=== PATIENT | female | born 1980 | race Caucasian/White ===

== ENCOUNTER 2018-10-11 05:06 | Inpatient (IN) ==
[2018-10-11] MEDS ORDERED: Chlorhexidine Gluconate 2% 1 Pack (2 Cloths) TOPICAL ONE (06:13)
[2018-10-11] MEDS ORDERED: Metoprolol Tartrate 25 MG Tablet PO ONE (06:13)
[2018-10-11] MEDS ORDERED: Vancomycin Inj 1,250 MG in Sodium Chlor 0.9% Inj 250 ML IV.SIG PRN (06:15)
[2018-10-11] MEDS ORDERED: Sodium Chlor 0.9% Inj 250 ML ONE (06:42)
[2018-10-11] MEDS ORDERED: Sugammadex Inj 200 MG/2 ML Vial IV.PUSH ONE (06:43)
[2018-10-11] MEDS ORDERED: Sodium Chlor 0.9% Inj 500 ML IV.SIG SCH (07:00)
[2018-10-11] MEDS ORDERED: Bupivacaine/Epinephrine Inj 0.25% 50 ML Vial ONE (07:06)
[2018-10-11] MEDS ORDERED: Post-op Orders (for Pharmacy) OTHER STA (09:38)
[2018-10-11] MEDS ORDERED: Naloxone Inj 0.4 MG/ML Vial IV.PUSH PRN (09:41)
[2018-10-11] MEDS ORDERED: *Meperidine Inj 25 MG/ML Vial PERIprocedural Use ONLY ONE (09:49)
[2018-10-11] MEDS ORDERED: fentaNYL Citrate Inj 100 MCG/2 ML Ampul ONE (09:49)
[2018-10-11] MEDS ORDERED: *morphine SULFATE 10 MG/ML PERIprocedure ONLY ONE ×2 (09:55→10:21)
[2018-10-11] MEDS: KCL 20 mEq/D5W/NaCl 0.45% Inj 1,000 ML IV.CONT SCH ×2 (10:26→20:37)
[2018-10-11] MEDS: Morphine Inj 30 MG/30 ML PCA.VIAL PCA PRN ×2 (10:29→23:31)
[2018-10-11] MEDS ORDERED: *HYDROmorphone PF Inj 1 MG/ML Ampul PERIprocedural Use ONLY ONE (11:30)
[2018-10-11] MEDS: Enoxaparin Inj 40 MG/0.4 ML Syringe SQ SCH (15:35)
[2018-10-11] MEDS: Ketorolac Inj 30 MG/ML (IVP) Vial IV.PUSH PRN (15:51)
[2018-10-11] MEDS: Venlafaxine XR 75 MG Capsule PO SCH (15:57)
[2018-10-11] MEDS: Acetaminophen-HYDROcodone 325/7.5 Liq 15 ML UDC PO PRN (20:33)
[2018-10-11] MEDS: ARIPiprazole 2 MG Tablet PO SCH (20:33)
[2018-10-11] MEDS: Vancomycin Inj 1,000 MG in Sodium Chlor 0.9% Inj 250 ML IV.SIG SCH (20:34)
[2018-10-11] MEDS: lamoTRIgine 100 MG Tablet PO SCH (20:35)
[2018-10-11] MEDS ORDERED: lamoTRIgine 100 MG Tablet PO SCH (21:00)
--- NOTE | 2018-10-11 23:37 | MP ---
cc: Jesus Zaman MD DATE OF OPERATION: 10/11/2018 PREOPERATIVE DIAGNOSIS: Morbid obesity with a body mass index of 43 complicated by hypercholesterolemia and obstructive sleep apnea. POSTOPERATIVE DIAGNOSIS: Morbid obesity with a body mass index of 43 complicated by hypercholesterolemia and obstructive sleep apnea. PROCEDURE PERFORMED: Laparoscopic Goldy-en-Y gastric bypass, 100 cm Goldy limb, antegastric, antecolic. SURGEON: Jesus Zaman MD ROASTERMAN: Allan Delgado MD. Dr. Delgado's assistance was necessary for the procedure due to the complexity of the procedure. Dr. Delgado assisted with manipulation and exposure during the procedure. The home care assistant provided by [employer] was utilized managing the camera. ANESTHESIA: General endotracheal anesthesia. ESTIMATED BLOOD LOSS: Scant. FINDINGS: Fatty liver. SPECIMENS: None. COMPLICATIONS: None. OPERATION IN DETAIL: The patient was brought to the operating room and placed on the operating table in supine position, bilateral sequential inflation device placed on lower extremities, general anesthesia instituted, antibiotics initiated. The abdomen was prepped and draped sterilely. A point 18-cm distal to the xiphoid in the midline anesthetized with 0.25% Marcaine with epinephrine. The skin incision was made, a 5-mm OptiView port placed under direct vision and pneumoperitoneum was created. Under direct vision a 5-mm left upper quadrant, 12-mm left upper quadrant, 12-mm right upper quadrant and 5-mm right upper quadrant ports were placed. Prior to placement of all ports, the skin and peritoneum were anesthetized with 0.25% Marcaine with epinephrine. The patient's omentum was lifted into the upper abdomen. It was split down the middle to create a path for the Goldy limb. The ligament of Treitz was identified, a point 40 cm distal identified. The small bowel was divided in this region using an [place] Flex stapler vascular load reinforced with SeamGuard. The distal segment was brought up for a distance of 100 cm, enterotomy created in this region, enterotomy in the biliopancreatic limb and a [id number] stapled jejunojejunostomy created in the usual manner. The mesenteric defect at the jejunojejunostomy was closed with 2-0 Surgidac suture in a running manner. The patient was placed in reverse Trendelenburg position with the left side up. The Mireya-Flex retractor was placed. The left lobe of the liver was retracted. The angle of His was taken down bluntly, a point 5 cm distal to the GE junction along the lesser curve identified, the lesser sac entered using blunt dissection. The stomach was partitioned horizontally using an [place]-Flex stapler blue load, an additional firing taken directed towards the angle of His to completely divide the stomach. A gastrotomy created in the new stomach, enterotomy in the Goldy limb and gastrojejunostomy created, stomal opening of 2 cm. An 18-Uzbek orogastric tube was placed across the anastomosis, the defect then closed in two layers of running 2-0 Vicryl. Prior to placement of the second layer, methylene blue instilled through the orogastric tube. There was no evidence of extravasation. Evicel was then placed over the gastrojejunostomy, jejunojejunostomy and all staple lines. The operative field inspected and hemostasis was present. The CO2 was released, all ports were removed. All skin incisions were closed with 4-0 Monocryl. The abdominal wall was cleaned and a sterile dressing placed. The patient was awakened and taken to the recovery room. MD ALLEN Jimenez/dinah , 11:04 PM , 11:10 PM
[2018-10-12] MEDS: KCL 20 mEq/D5W/NaCl 0.45% Inj 1,000 ML IV.CONT SCH ×3 (02:07→17:12)
[2018-10-12] MEDS: Acetaminophen-HYDROcodone 325/7.5 Liq 15 ML UDC PO PRN ×3 (04:51→19:39)
[2018-10-12] MEDS: Levothyroxine 50 MCG Tablet PO SCH ×2 (04:52→07:44)
[2018-10-12] MEDS: Morphine Inj 30 MG/30 ML PCA.VIAL PCA PRN (06:55)
[2018-10-12 07:02] LABS: Baso % (Auto) 0.1 % (0.0-2.0); Eos % (Auto) 0.1 % (0.0-4.0); Hematocrit 36.5 % (35.0-46.0); Lymph # (Auto) 1.2 th/mm3 (1.0-4.8); Lymph % (Auto) 6.4 % (9.0-44.0); Mean Corpuscular HGB Conc 32.9 % (32.0-36.0); Mean Corpuscular Hemoglobin 27.8 pg (27.0-34.0); Mean Corpuscular Volume 84.6 fL (80.0-100.0); Mean Platelet Volume 8.6 fL (7.0-11.0); Mono % (Auto) 5.3 % (0.0-8.0); Neut # (Auto) 16.5 th/mm3 (1.8-7.7); Neut % (Auto) 88.1 % (16.0-70.0); Platelet Count 257 th/mm3 (150-450); Red Blood Count 4.31 mil/mm3 (4.00-5.30); Red Cell Distribution Width 13.7 % (11.6-17.2); White Blood Count 18.7 th/mm3 (4.0-11.0)
[2018-10-12 07:24] LABS: Carbon Dioxide 26.2 meq/L (21.0-32.0); Magnesium 2.6 mg/dL (1.5-2.5); Potassium 4.2 meq/L (3.5-5.1)
[2018-10-12] MEDS: lamoTRIgine 100 MG Tablet PO SCH ×2 (08:44→19:44)
[2018-10-12] MEDS: Venlafaxine XR 75 MG Capsule PO SCH (08:44)
[2018-10-12] MEDS: Vancomycin Inj 1,000 MG in Sodium Chlor 0.9% Inj 250 ML IV.SIG SCH (08:46)
[2018-10-12] MEDS ORDERED: Ketorolac Inj 30 MG/ML (IVP) Vial IV.PUSH PRN (09:58)
--- NOTE | 2018-10-12 10:33 | P.PNGS ---
Subjective Patient reports: feels better, still having pain, tolerating liquids well ( Denies SOB, palpitations or chest pain. Walking in the halls without difficulty.), no flatus, nausea Physical Exam Vital signs: Vital Signs 10/11/18 10:45 10/11/18 11:45 10/11/18 12:00 Temperature 97.8 F Pulse Rate 101 H 105 H 110 H Respiratory Rate 18 18 17 Blood Pressure 150/70 H 150/67 H 132/83 Pulse Oximetry 95 95 92 L 10/11/18 12:25 10/11/18 13:44 10/11/18 16:00 Temperature 97.6 F 97.1 F L Pulse Rate 111 H 91 H Respiratory Rate 18 18 18 Blood Pressure 153/67 H 121/66 Pulse Oximetry 95 98 10/11/18 16:21 10/11/18 19:55 10/11/18 20:00 Temperature 97.1 F L Pulse Rate 94 H Respiratory Rate 18 20 18 Blood Pressure 120/77 Pulse Oximetry 94 L 10/11/18 23:56 10/12/18 04:00 10/12/18 07:46 Temperature 98.2 F 97.9 F Pulse Rate 89 93 H Respiratory Rate 18 18 20 Blood Pressure 120/59 L 122/69 Pulse Oximetry 93 L 93 L 10/12/18 08:00 Temperature 97.9 F Pulse Rate 92 H Respiratory Rate 20 Blood Pressure 112/98 H Pulse Oximetry 90 L Intake & Output 10/11/18 10/12/18 10/12/18 18:59 06:59 18:59 Intake Total 1432.5 / 1432.5 1750 / 1750 350 / 350 Output Total 1082 / 1082 2100 / 2100 Balance 350.5 / 350.5 -350 / -350 350 / 350 Weight 129.2 kg 129.4 kg Intake: IV 1312.5 / 1312.5 1350 / 1350 350 / 350 D5W/1/2NS + KCL 20 mEq Inj 1, 750 / 750 1000 / 1000 000 ML @ 125 mls/hr IV.CONT . Q8H [facility] Rx#:[id number] Ofirmev Inj 1,000 mg In 100 ml 100 / 100 @ 400 mls/hr IV.SIG [facility]N Rx#:[id number] Vancomycin Inj 1,000 MG In NS 250 / 250 250 / 250 Inj 250 ML @ 250 mls/hr IV.SIG Q12H [facility] Rx#:[id number] Vancomycin Inj 1,250 MG In NS 262.5 / 262.5 Inj 250 ML @ 250 mls/hr IV.SIG [facility] Rx#:[id number] Flagyl 500 MG Inj 100 ML @ 100 200 / 200 100 / 100 100 / 100 mls/hr IV.SIG Q8H [facility] Rx#: [id number] Oral 120 / 120 400 / 400 Output: Urine 1075 / 1075 2100 / 2100 Estimated Blood Loss 7 / 7 Other: # Bowel Movements 0 Narrative: GENERAL: SKIN: Warm and dry. HEAD: Normocephalic. EYES: No scleral icterus. No injection or drainage. NECK: Supple, trachea midline. No JVD or lymphadenopathy. CARDIOVASCULAR: Regular rate and rhythm without murmurs, gallops, or rubs. RESPIRATORY: Breath sounds equal bilaterally. No accessory muscle use. GASTROINTESTINAL: Abdomen soft, normal post operative tenderness, laparoscopic sites WNL, mildly distended. MUSCULOSKELETAL: No cyanosis, or edema. BACK: Nontender without obvious deformity. No CVA tenderness. Results - Labs 10/12/18 06:04 10/12/18 06:04 Laboratory Results - last 24 hr 10/12/18 10/12/18 06:04 06:04 WBC 18.7 H RBC 4.31 Hgb 12.0 Hct 36.5 MCV 84.6 MCH 27.8 MCHC 32.9 RDW 13.7 Plt Count 257 MPV 8.6 Neut % (Auto) 88.1 H Lymph % (Auto) 6.4 L [place] % (Auto) 5.3 Eos % (Auto) 0.1 Baso % (Auto) 0.1 Neut # (Auto) 16.5 H Lymph # (Auto) 1.2 [place] # (Auto) 1.0 H Eos # (Auto) 0.0 Baso # (Auto) 0.0 WBC Differential . Differential Comment Auto diff final Sodium 142 Potassium 4.2 Chloride 108 H Carbon Dioxide 26.2 Anion Gap 8 BUN 8 Creatinine 0.80 Estimated GFR 81 L Random Glucose 123 H Calcium 8.0 L Magnesium 2.6 H Assessment and Plan - Plan POD #1 status post laparoscopic RNY Tolerating clear liquids 60 ml every 30 minutes Ambulate ad ericka, add scopolamine for nausea. Alternate toradol and hycet for pain control. Code Status: full Discussed Condition With: patient
[2018-10-12] MEDS: Enoxaparin Inj 40 MG/0.4 ML Syringe SQ SCH (13:38)
[2018-10-12] MEDS: Ketorolac Inj 30 MG/ML (IVP) Vial IV.PUSH PRN ×2 (13:39→19:44)
[2018-10-12] MEDS: diphenhydrAMINE HCl 12.5 MG/5 ML Elixir UDC PO PRN ×2 (17:11→22:42)
[2018-10-12] MEDS: ARIPiprazole 2 MG Tablet PO SCH (19:44)
[2018-10-12 23:50] VITALS: BP 114/56; PULSE 95; RESP 19; TEMP 97.9; O2SAT 93
[2018-10-13] MEDS: ARIPiprazole 2 MG Tablet PO SCH (00:18)
[2018-10-13] MEDS: lamoTRIgine 100 MG Tablet PO SCH ×2 (00:18→08:53)
[2018-10-13] MEDS: Acetaminophen-HYDROcodone 325/7.5 Liq 15 ML UDC PO PRN ×2 (01:12→06:17)
[2018-10-13] MEDS: KCL 20 mEq/D5W/NaCl 0.45% Inj 1,000 ML IV.CONT SCH ×2 (01:14→10:40)
[2018-10-13] MEDS: Ketorolac Inj 30 MG/ML (IVP) Vial IV.PUSH PRN ×2 (01:14→06:17)
[2018-10-13 06:15] LABS: Baso # (Auto) 0.1 th/mm3 (0.0-0.2); Baso % (Auto) 0.9 % (0.0-2.0); Eos # (Auto) 0.2 th/mm3 (0.0-0.4); Eos % (Auto) 2.1 % (0.0-4.0); Hematocrit 32.3 % (35.0-46.0); Hemoglobin 10.7 gm/dL (11.6-15.3); Lymph # (Auto) 1.7 th/mm3 (1.0-4.8); Lymph % (Auto) 16.8 % (9.0-44.0); Mean Corpuscular HGB Conc 33.2 % (32.0-36.0); Mean Corpuscular Hemoglobin 28.4 pg (27.0-34.0); Mean Corpuscular Volume 85.3 fL (80.0-100.0); Mean Platelet Volume 8.4 fL (7.0-11.0); Mono # (Auto) 0.8 th/mm3 (0.0-0.9); Mono % (Auto) 8.1 % (0.0-8.0); Neut # (Auto) 7.2 th/mm3 (1.8-7.7); Neut % (Auto) 72.1 % (16.0-70.0); Platelet Count 210 th/mm3 (150-450); Red Blood Count 3.78 mil/mm3 (4.00-5.30); Red Cell Distribution Width 13.7 % (11.6-17.2)
[2018-10-13] MEDS: Levothyroxine 50 MCG Tablet PO SCH (06:16)
[2018-10-13] MEDS: Venlafaxine XR 75 MG Capsule PO SCH (08:53)
[2018-10-13] MEDS ORDERED: Ketorolac 10 MG Tablet PO PRN (10:20)
--- NOTE | 2018-10-14 09:08 | P.DS ---
Date of admission: 10/11/18 05:06 Primary care physician: Marcellus Orozco MD Attending physician on discharge: Jesus Zaman Brief History from admission: Pt admitted for elective laparoscopic RNY. DS: Diagnosis - Discharge Diagnosis (1) Status post gastric bypass for obesity Status: Acute DS: Medications - Discharge Medications Prescriptions: ketorolac 10 mg PO Q6H PRN #12 tab PRN Reason: Abdominal Pain DS: Summary Hospital Course: Pt admitted for elective laparoscopic RNY. Pain and nausea well controlled, tolerating clear liquids well, DC home at this time with follow up in one week outpatient. - Time Spent with Patient Total time spent providing and/or coordinating discharge services: Less than 30 minutes - Quality: AMI Clinical Trial Participant: No - Quality: VTE Deep Vein Thrombosis/Pulmonary Embolism Present on Admission: No Exam Vital signs: Intake & Output 10/13/18 10/14/18 10/14/18 18:59 06:59 18:59 Intake Total 1000 / 1000 Balance 1000 / 1000 Intake: IV 1000 / 1000 D5W/1/2NS + KCL 20 mEq Inj 1, 1000 / 1000 000 ML @ 125 mls/hr IV.CONT . Q8H [facility] Rx#:[id number] Narrative: GENERAL: SKIN: Warm and dry. HEAD: Normocephalic. EYES: No scleral icterus. No injection or drainage. NECK: Supple, trachea midline. No JVD or lymphadenopathy. CARDIOVASCULAR: Regular rate and rhythm without murmurs, gallops, or rubs. RESPIRATORY: Breath sounds equal bilaterally. No accessory muscle use. GASTROINTESTINAL: Abdomen soft, normal post operative tenderness, laparoscopic sites WNL, mildly distended. MUSCULOSKELETAL: No cyanosis, or edema. BACK: Nontender without obvious deformity. No CVA tenderness. Results Procedures completed during hospitalization: none Discharge Plan - Discharge Disposition Patient Disposition: 01 Discharge Home - Discharge Condition Condition: Good - Discharge Order Discharge Orders: Discharge Order (Routine); Ordered 10/13/18 Ordered By: Ning Payne - Discharge Details Discharge Comment: Do not d/c until cleared. - Physicians Team Primary Care Provider: Marcellus Orozco Attending Provider: Jesus Zaman Other Providers: Allan Delgado MD - Rxs /Orders / Referrals /Forms Prescriptions: New ketorolac 10 mg Tablet 10 mg PO Q6H PRN (Reason: Abdominal Pain) Qty: 12 RF: 0 Continue aripiprazole 2 mg Tablet 2 mg PO DAILY atorvastatin 10 mg Tablet 10 mg PO DAILY cyclobenzaprine 5 mg Tablet 5 mg PO DAILY PRN (Reason: Muscle Spasm) ergocalciferol (vitamin D2) [Vitamin D2] 50,000 unit Capsule 50,000 units PO 2XWEEK folic acid 1 mg Tablet 1 mg PO DAILY lamotrigine 150 mg Tablet 150 mg PO BID levothyroxine 50 mcg Tablet 50 mcg PO DAILY lorazepam [Ativan] 0.5 mg Tablet 0.5 mg PO BID PRN (Reason: Anxiety) melatonin 10 mg Tablet 10 mg PO HS PRN (Reason: Insomnia) pantoprazole 40 mg Tablet,Delayed Release (Dr/Ec) 40 mg PO DAILY venlafaxine 150 mg Tablet Extended Release 24hr 150 mg PO DAILY Discontinued Estropipate 1.5 mg tablet 1.5 mg PO DAILY ranitidine HCl 150 mg Capsule 150 mg PO BID Referrals: Marcellus Orozco MD [Primary Care Provider] - 10/20/18 3:15 pm - Discharge Instructions Patient Printed Instructions: Constipation (DC), Goldy-en-Y Gastric Bypass (DC) , Nutrition after Bariatric Surgery (DC), Steristrips (ED), Bowel Management After Bariatric Surgery (DC)
== END 2018-10-13 10:59 | disposition home or self-care (01) ==
LOC: HSDI 05:06 → N07 12:33
PROVIDERS: ADMIT Surgery; ATTEND Surgery